=== PATIENT | male | born 1930 | race Caucasian/White ===

== ENCOUNTER 2017-07-30 17:32 | Emergency (ER) | payer MEDICARE ==
[~2017-07-30] VITALS: Ht 180.3 cm; Wt 80.0 kg
[~2017-07-30 17:32] MED LIST: ACTOS45 MG PO; AMLODIPINE10 MG PO; ASA LO-DOSE81 MG OR; AVANDIA4 MG OR; AVELOX400 MG PO; BACTROBAN21 EX; CEPHALEXIN500 MG PO; CIPRO XR500 MG OR; GLIPIZIDE ER10 M1 PO; GLIPIZIDE5 MG OR; GLUCOTROL5 MG OR; KEFLEX500 MG OR; LISINOPRIL20 M1 PO; LORTAB 5 OR; LORTAB 5/3255 MG PO; MECLIZINE25 MG PO; MELOXICAM7.5 MG PO; METFORMIN500 MG OR; METFORMIN500 MG PO; METHOCARBAM500 MG PO; PRAVACHOL20 MG PO; RESTORIL15 MG OR; ROBITUSSIN AC OR; SIMVASTATIN20 MG PO; TESSALON PER100 MG PO; TRIAMCINOLON0.11; TRIAMCINOLON0.11 EX; ZOCOR20 MG OR; ZOCOR20 MG PO; ZPAK PO; robitussin ac OR
[2017-07-30 19:38] LABS: HEMATOCRIT 37.9 % (39.0-50.0); IMMATURE GRANULOCYTES 0.5 % (0.0-1.0); MEAN CELL VOLUME 88.6 fL CALC (80.0-100.0); MEAN CORPUSCULAR HGB 30.4 pG CALC (26.0-32.0); MEAN CORPUSCULAR HGB CONC 34.3 g/L CALC (32.0-36.0); NEUT# 2.94 thou/uL (1.82-7.42); RED BLOOD COUNT 4.28 mill/uL (4.70-6.10); RED CELL DISTRI WIDTH 12.1 % (11.5-15.5)
[2017-07-30] MEDS ORDERED: GLIPIZIDE5 M2 PO (19:43)
[2017-07-30] MEDS ORDERED: LEVOTHYROXIN75 MC1 PO (19:44)
[2017-07-30] MEDS ORDERED: LISINOPRIL20 MG PO (19:44)
[2017-07-30 19:45] LABS: ALBUMIN 4.4 g/dL (3.2-5.0); ALKALINE PHOSPHATASE 82 u/l (38-126); ANION GAP 15 (6-22 (CALC)); BILIRUBIN, TOTAL 0.3 mg/dL (0.0-1.4); BUN 22 mg/dL (8-23); BUN/CREATININE RATIO 25 (12-20 (CALC)); CALCIUM 9.5 mg/dL (8.4-10.2); CARBON DIOXIDE 28 mmol/l (22-30); CHLORIDE 103 mmol/l (95-108); CREATININE 0.9 mg/dL (0.7-1.3); GFR > 60 ML/MIN (>=60 (CALC)); GFR FOR AFR.AMER. > 60 ML/MIN (>=60 (CALC)); GLUCOSE 130 mg/dL (82-115); POTASSIUM 4.3 mmol/l (3.5-5.1); SGOT/AST 27 u/l (19-48); SGPT/ALT 36 u/l (11-66); SODIUM 142 mmol/l (137-146)
[2017-07-30] MEDS ORDERED: AMLODIPINE BESYL5 MG PO (19:45)
[2017-07-30] MEDS ORDERED: METFORMIN500 M2 PO (19:46)
[2017-07-30] MEDS ORDERED: PRAVASTATIN SOD20 MG PO (19:46)
[2017-07-30] MEDS ORDERED: ULTRAM50 M1 PO (22:07)
[2017-07-30] MEDS ORDERED: ORPHENADRINE100 MG PO (22:07)
[2017-07-30] MEDS ORDERED: ZOFRAN4 MG/TAB PO (22:07)
[2017-07-30 22:15] VITALS: BP 144/74
== END 2017-07-30 22:15 | disposition home or self-care (01) ==
LOC: ED 17:32
PROVIDERS: Emergency Medicine
DX: R51 Headache (principal); M47.812 Spondylosis without myelopathy or radiculopathy, cervical region; I10 Essential (primary) hypertension; E11.9 Type 2 diabetes mellitus without complications; Z79.84 Long term (current) use of oral hypoglycemic drugs

== ENCOUNTER 2019-02-02 01:52 | Emergency (ER) | payer MEDICARE ==
[~2019-02-02] VITALS: Ht 180.3 cm; Wt 90.0 kg
[~2019-02-02 01:52] MED LIST changes: +AMLODIPINE BESYL5 MG PO; +GLIPIZIDE5 M2 PO; +LEVOTHYROXIN75 MC1 PO; +LISINOPRIL20 MG PO; +METFORMIN500 M2 PO; +ORPHENADRINE100 MG PO; +PRAVASTATIN SOD20 MG PO; +ULTRAM50 M1 PO; +ZOFRAN4 MG/TAB PO
[2019-02-02 02:28] LABS: HEMATOCRIT 38.2 % (39.0-50.0); HEMOGLOBIN 12.9 g/dl (14.0-18.0); IMMATURE GRANULOCYTES 0.2 % (0.0-5.0); MEAN CORPUSCULAR HGB 29.7 pG CALC (26.0-32.0); MEAN CORPUSCULAR HGB CONC 33.8 g/L CALC (32.0-36.0); NEUT# 2.54 thou/uL (1.82-7.42); RED BLOOD COUNT 4.34 mill/uL (4.70-6.10); RED CELL DISTRI WIDTH 12.2 % (11.5-15.5)
[2019-02-02 02:29] LABS: URINE BILIRUBIN - DIPSTICK NEGATIVE (NEGATIVE); URINE BLOOD DIPSTICK NEGATIVE (NEGATIVE); URINE COLOR YELLOW; URINE GLUCOSE - DIPSTICK NEGATIVE (NEGATIVE); URINE KETONE NEGATIVE (NEGATIVE); URINE LEUK ESTERASE NEGATIVE (NEGATIVE); URINE NITRITE - DIPSTICK NEGATIVE (Negative); URINE PROTEIN - DIPSTICK NEGATIVE (NEG-TRACE); URINE UROBILINOGEN - DIPSTICK 0.2 E.U./dL (0.2)
[2019-02-02 02:40] LABS: ALBUMIN 4.1 g/dL (3.2-5.0); ALKALINE PHOSPHATASE 80 u/l (38-126); ANION GAP 13 (6-22 (CALC)); BILIRUBIN, TOTAL 0.4 mg/dL (0.0-1.4); BUN 18 mg/dL (8-23); BUN/CREATININE RATIO 23 (12-20 (CALC)); CARBON DIOXIDE 28 mmol/l (22-30); CHLORIDE 103 mmol/l (95-108); CREATININE 0.8 mg/dL (0.7-1.3); GFR > 60 ML/MIN (>=60 (CALC)); GFR FOR AFR.AMER. > 60 ML/MIN (>=60 (CALC)); POTASSIUM 4.2 mmol/l (3.5-5.1); SGOT/AST 22 u/l (19-48); SODIUM 139 mmol/l (137-146); TOTAL PROTEIN 6.7 g/dL (6.3-8.2)
[2019-02-02 04:00] VITALS: BP 140/76
[2019-02-02] MEDS ORDERED: TORADOL PO (04:09)
[2019-02-02] MEDS ORDERED: TRAMADOL HCL50 MG PO (04:09)
[2019-02-02] MEDS ORDERED: ORPHENADRINE C100 M1 PO (04:09)
== END 2019-02-02 04:27 | disposition home or self-care (01) ==
LOC: ED 01:52
PROVIDERS: Family Medicine
DX: M54.5 Low back pain (principal); E11.9 Type 2 diabetes mellitus without complications; I10 Essential (primary) hypertension